=== PATIENT | female | born 1945 | race Caucasian/White ===

== ENCOUNTER 2025-06-04 08:17 | Outpatient (OUT) | payer MEDICARE, SELFPAY ==
--- NOTE | 2025-06-04 09:07 | P.CN_ITS ---
Consult Note: HPI Data of Consult Patient: known to practice within the last 3 years Requesting Physician: Sheron Sena NP Primary Care Provider: Greg Henderson DO Consult Narrative Reason for consult: low back pain Narrative: Sherrell Mitchell a pleasant 80 year old female with chronic low back pain secondary to lumbar spondylolisthesis, lumbar spondylosis, and lumbar stenosis presents for evaluation as advised by ELENI Henderson. Patient has undergone recent lumbar xray and MRI imaging which confirms lumbar spondylolisthesis, lumbar spondy losis, and lumbar stenosis L3-S1. patient denies recent fall/injury, notes pain did start 5 years ago after a fall. Pain today 8/10 increasing to 10/10 with standing and walking. pain improves significant with sitting and lying. denies numbness, tingling, weakness. could not tolerate PT due to severe pain, reports she attempted PT and HEP for at least 6 weeks without improvement cc:: CC: Sheron Sena NP Review of Systems ROS Musculoskeletal Reports: back pain Exam Constitutional Documenting provider has reviewed patient's vital signs: yes Common normals: no apparent distress, oriented x3, healthy appearing, alert and well nourished General appearance: cooperative HENWV Common normals: normocephalic, hearing grossly normal bilaterally and moist oral mucous membranes Head and scalp: normocephalic Eye Common normals: PERRL Pupil: PERRL Neck & C-Spine Common normals: full ROM General: normal visual inspection Chest Common normals: inspection of chest normal Respiratory Common normals: normal respiratory effort, no retractions and no use of accessory muscles Back & Pelvis Lumbar spine/lower back: ROM limited, pain with ROM and lumbar spinal tenderness Other: increased pain with standing and walking, significant improvement with sitting positive facet loading bilaterally Neuro Common normals: oriented x3 Sensorium/orientation: alert Psych Common normals: mental status grossly normal, thought process normal, cooperative, affect normal, speech normal and activity/motor behavior normal Speech: normal speech Thought process: normal thought process Results Additional Findings Additional findings: If on a controlled substance or opioids, I have checked an OARRS report on this patient and there are no aberrancies noted in the prescribing history.??If on a controlled substance or opioid a drug screen was completed and reviewed within the last year, and if there has not been a drug screen completed we ordered one today to monitor higher risk, state monitored pain medication use. As part of providing excellent, safe, comprehensive care, the following was completed at our patient's visit: 1. A medication reconciliation and review to ensure accurate knowledge of current/active medications, including asking our patients to inform us about any jium-ocq-kirieti medications or herbal remedies/nutritional supplements/alternative remedies. 2. A review to specifically ensure our patients have had annual screening for screening for depression, screening for tobacco use, and screening for unhealthy alcohol use. For concerning screenings had a discussion with the patient, provided patient education, and recommended follow-up with primary care provider when appropriate. If patient noted with a risk of falling, they received education on strength, gait, and balance training to prevent future risk of falling. Portions of this note may have been carried over from the previous visit and updated as appropriate. Please note this office utilizes paper charting in addition to the electronic medical record. A list of current medications, vitals, and PMH is available there as the clinical staff outside of myself do not have access to [employer] charting during the clinic day operations. As part of providing quality comprehensive care the current medications, vitals, and PMH were reviewed in the paper chart. Assessment and Plan Assessment and Plan (1) Lumbar spondylosis: Assessment and Plan: The patient has had over 3 months of moderate to severe low back pain with functional impairment and inadequate response to conservative care including NSAIDS (unless there are contraindication such as concurrent blood thinners), multiple oral or topical pain medications, and home exercise program/physical therapy.?Patient has completed >6 weeks of guided home exercise program and/or formal physical therapy program without relief of their symptoms.? ? (2) Lumbar stenosis without neurogenic claudication: Plan bilateral L4-5 mbb x2 under fluoroscopy in consideration of RFA for axial facet mediated low back pain vs NS intervention as advised by Dr Henderson via referral, I did call his office and speak with his nursing to confirm this plan of care today. informational handout provided to the pt continue HEP as tolerated not interested in medication management, AIR CONDITIONING SPECIALIST reviewed and signed. defer UDS f/u after each injection
== END 2025-06-04 08:18 | disposition home or self-care (01) ==
LOC: PM 08:18
PROVIDERS: PCP Neurological Surgery; Visit Provider Nurse Practitioner
DX: M47.816 Spondylosis without myelopathy or radiculopathy, lumbar region (principal); M48.062 Spinal stenosis, lumbar region with neurogenic claudication
CPT/HCPCS: G0463

== ENCOUNTER 2025-07-17 17:57 | Emergency (ER) | payer MEDICARE, SELFPAY ==
[2025-07-17 18:03] VITALS: BP 146/72; PULSE 67; TEMP 36.7; O2SAT 98; BMI 35.2
--- NOTE | 2025-07-17 18:40 | PC.NURSE ---
PA at bedside at this time digitally disimpacting pt. fleets enema then given. pt tolerating well
--- NOTE | 2025-07-17 18:58 | ED.GENADUL1 ---
HPI HPI - General Adult General Chief complaint: Abdominal Pain Stated complaint: CONSTIPATED Time Seen by Provider: 07/17/25 17:59 Source: patient Mode of arrival: walk-in Limitations: no limitations History of Present Illness HPI narrative: Patient has history of constipation x 3 days. Patient she also has inability to produce stool states it feels like it is at the rectum but has not come out she has had some bleeding secondary to pushing. She denies any nausea, vomiting, abdominal pain,. she has also tried suppositories as well as MiraLAX without relief Symptoms mild severity nothing improves symptoms nothing worsens her symptoms.. Onset (ago): day(s) (3) Related Data Home Medications ?Medication ?Instructions ?Recorded ?Confirmed calcium 600 mg (as 1 tab PO DAILY 06/04/25 06/04/25 carbonate)-vitamin D3 5 mcg (200 unit) tablet (Calcium 600 + D(3)) esomeprazole magnesium 40 mg 40 mg PO DAILY 06/04/25 07/17/25 capsule,delayed release (Nexium) furosemide 20 mg tablet 20 mg PO DAILY 06/04/25 07/17/25 levothyroxine 100 mcg capsule 100 mcg PO DAILY 06/04/25 06/04/25 methimazole 10 mg tablet 10 mg PO BID 06/04/25 07/17/25 polyethylene glycol 3350 17 17 g PO DAILY 06/04/25 06/04/25 gram/dose oral powder (Miralax) solifenacin 5 mg tablet 5 mg PO DAILY 06/04/25 07/17/25 tamoxifen 20 mg tablet 20 mg PO DAILY 06/04/25 07/17/25 vitamin B complex (Vitamins B 1 cap PO DAILY 06/04/25 06/04/25 Complex capsule) levothyroxine 100 mcg tablet mcg 07/17/25 potassium chloride 10 mEq meq PO 07/17/25 tablet,extended release Allergies Allergy/AdvReac Type Severity Reaction Status Date / Time No Known Drug Allergies Allergy Verified 07/17/25 18:03 Opioid HPI Opioid Management Most Recent Opioid Data: Last Pain Scale 8 Today, 18:03 Review of Systems ROS Status of ROS 10 or more systems reviewed and unremarkable except as noted in history and below Constitutional Denies: fever or chills Eyes Denies: change in vision or blurry vision Ears, nose, mouth, and throat Denies: throat pain Cardiovascular Denies: chest pain or palpitations Respiratory Denies: shortness of breath or cough Gastrointestinal Reports: constipation and blood in stool; Denies: abdominal pain, nausea, vomiting or change in stool character Genitourinary Denies: painful urination or blood in urine Musculoskeletal Denies: back pain or muscle weakness Integumentary/Breast Denies: rash Neurological Denies: headache Psychiatric Denies: anxiety [facility] Medical History (Updated 07/17/25 @ 19:06 by ALEX STEEN II) Osteoarthritis ?M19.90 - Unspecified osteoarthritis, unspecified site (ICD-10) Breast cancer ?C50.919 - Malignant neoplasm of unspecified site of unspecified female breast (ICD-10) Graves disease ?E05.00 - Thyrotoxicosis with diffuse goiter without thyrotoxic crisis or storm (ICD-10) Heart murmur ?R01.1 - Cardiac murmur, unspecified (ICD-10) Surgical History (Updated 06/04/25 @ 09:52 by Rhona Rangel RN) History of breast surgery ?Z98.890 - Other specified postprocedural states (ICD-10) H/O section ?Z98.891 - History of uterine scar from previous surgery (ICD-10) Exam Narrative Exam Narrative: Patient presents with constipation x 3 days Constitutional Vital Signs, click to edit/add: Last Vital Signs Temp 98.1 F 07/17/25 18:03 Pulse 65 07/17/25 19:14 Resp 16 07/17/25 19:14 BP 118/52 07/17/25 19:14 Pulse Ox 98 07/17/25 18:03 O2 Del Method Room Air 07/17/25 18:03 Documenting provider has reviewed patient's vital signs: yes Common normals: no apparent distress and oriented x3 HENMT Common normals: normocephalic, hearing grossly normal bilaterally and external ears normal Eye Common normals: PERRL and EOMs intact bilaterally Neck & C-Spine Common normals: full ROM and supple Respiratory Common normals: normal respiratory effort and clear to auscultation bilaterally Effort & inspection: able to speak in complete sentences Cardio Common normals: regular rate, regular rhythm, S1 normal heart sound and S2 normal heart sound GI Common normals: Normal to inspection, nondistended, normoactive bowel sounds present, soft to palpation and non-tender Rectal Exam - Female: normal sphincter tone and fecal impaction Other: Fecal impaction negative bleeding negative dark stool negative blood mixed with stool. Small nonthrombosed hemorrhoid noted nursing present for exam and treatment Back & Pelvis Common normals: thoraco-lumbar ROM normal Extremity Common normals: normal to inspection and full ROM Neuro Common normals: oriented x3 Psych Common normals: mental status grossly normal, thought process normal and cooperative Course Vital Signs Vital signs: Vital Signs Temperature 98.1 F 07/17/25 18:03 Pulse Rate 67 07/17/25 18:03 Respiratory Rate 16 07/17/25 18:03 Blood Pressure 146/72 H 07/17/25 18:03 Pulse Oximetry 98 07/17/25 18:03 Oxygen Delivery Method Room Air 07/17/25 18:03 Temperature 98.1 F 07/17/25 18:03 Pulse Rate 65 07/17/25 19:14 Respiratory Rate 16 07/17/25 19:14 Blood Pressure 118/52 07/17/25 19:14 Pulse Oximetry 98 07/17/25 18:03 Oxygen Delivery Method Room Air 07/17/25 18:03 Medical Decision Making [facility] Narrative Medical decision making narrative: Patient presents with 3-day history of inability produce stool she feels as if it stuck in her rectum. She has tried MiraLAX along with suppositories with no relief. She had small amount of bleeding with straining. Denies any abdominal pain, nausea, vomiting. We discussed fecal disimpaction including risks and benefits including increased bleeding worsening of symptoms, pain damage to rectum. We discussed fleets enema. Patient tolerated procedure with nursing present negative bleeding negative tar-like stool. Fleets enema added. Patient had large amount of stool output feels better wants discharged home she will continue her MiraLAX will add magnesium citrate as directed on packaging and clear liquid diet. Discussed plan of care patient agreeable plan of care. Differential Diagnosis Differential Diagnosis: Constipation ,fecal impaction Discharge Plan Discharge Chief Complaint: Abdominal Pain Clinical Impression: Fecal impaction Constipation Qualifiers: Constipation type: unspecified constipation type Qualified Code(s): K59.00 - Constipation, unspecified Patient Disposition: Home, Self-Care Time of Disposition Decision: 19:05 Mode of Transportation: Private Vehicle Prescriptions / Home Meds: No Action levothyroxine 100 mcg capsule 100 mcg PO DAILY methimazole 10 mg tablet 10 mg PO BID esomeprazole magnesium [Nexium] 40 mg capsule,delayed release(DR/EC) 40 mg PO DAILY tamoxifen 20 mg tablet 20 mg PO DAILY vitamin B complex [Vitamins B Complex] Capsule 1 cap PO DAILY calcium carbonate-vitamin D3 [Calcium 600 + D(3)] 600 mg-5 mcg (200 unit) tablet 1 tab PO DAILY polyethylene glycol 3350 [Miralax] 17 gram/dose powder 17 g PO DAILY solifenacin 5 mg tablet 5 mg PO DAILY furosemide 20 mg tablet 20 mg PO DAILY potassium chloride 10 mEq tablet extended release PO levothyroxine 100 mcg tablet Print Language: Chadian Instructions: Constipation (DC), Fecal Impaction (ED) Additional Instructions: Clear liquid diet for 24 hours includes water, Jell-O, popsicles, clear broth, Gatorade. Use magnesium citrate as directed on side of bottle for constipation. Return to ER if any symptoms worsen or new symptoms develop. Referrals: Alejandro Stern DO [Primary Care Provider] - 1 week Discharge Date/Time: 07/17/25 19:17
[2025-07-17 19:14] VITALS: BP 118/52; PULSE 65
== END 2025-07-17 19:17 | disposition home or self-care (01) ==
PROVIDERS: Emergency Provider Emergency Medicine; PCP Family Medicine
DX: K56.41 Fecal impaction (principal)
CPT/HCPCS: 99283

== ENCOUNTER 2025-07-21 10:15 | Day surgery (SDC) | payer MEDICARE, SELFPAY ==
[2025-07-21 10:55] VITALS: BP 177/85; PULSE 55; TEMP 36.2; O2SAT 94
[2025-07-21 11:29] VITALS: BP 197/85; PULSE 87; O2SAT 95
[2025-07-21 11:30] VITALS: BP 202/93; PULSE 64; O2SAT 96
[2025-07-21] MEDS: BUPIVACAINE HCL 0.25% PF 25 MG/10 ML VIAL 8 ML INJ (11:31)
[2025-07-21] MEDS: LIDOCAINE HCL 2% 400 MG/20 ML MDV INJ (11:31)
--- NOTE | 2025-07-21 11:33 | W.PM.PROCNOT ---
Date of procedure: 07/21/25 Pre-op diagnosis: Pain due to lumbar spondylosis without myelopathy Post-op diagnosis: same as pre-op Procedure: Procedure: Bilateral L4-5 medial branch block Medications: Bupivacaine 0.25% 6cc The patient was seen and examined in the preoperative holding area.? An informed consent was obtained and placed on the chart.? The patient was brought to the medical procedure unit and placed in the prone position.? A timeout was completed verifying correct patient, procedure site, positioning, plan, and special equipment.? Using aseptic technique, the needle was placed at left L4. Under direct fluoroscopic visualization a Quincke-tipped spinal needle was advanced to the junction of the superior articulating process with the transverse process at the designated medial branch segment.? Preceded by negative aspiration, the above-mentioned injectate was placed in 1 mL aliquots.? The procedure was repeated at left L5.? The needle was removed and insertion site was covered. The same procedure, at the same levels, was completed on the right side. The patient was taken to the postprocedural recovery area and monitored for an appropriate length of time before found suitable for discharge in the company of a responsible adult. Anesthesia: Local Surgeon: Margarita Sol Pathology: none sent Condition: stable Disposition: no change
== END 2025-07-21 11:38 | disposition home or self-care (01) ==
PROVIDERS: PCP Family Medicine; Visit Provider Anesthesiology
DX: M47.816 Spondylosis without myelopathy or radiculopathy, lumbar region (principal); M54.50 Low back pain, unspecified
CPT/HCPCS: 64493; J0665

== ENCOUNTER 2025-07-24 08:23 | Outpatient (OUT) | payer MEDICARE, SELFPAY ==
--- NOTE | 2025-07-24 08:41 | PM.CN ---
Consult Note: HPI Data of Consult Patient: known to practice within the last 3 years Requesting Physician: Sheron Sena NP Primary Care Provider: Alejandro Stern DO Consult Narrative Reason for consult: low back pain Narrative: Sherrell Mitchell a pleasant 80 year old female with chronic low back pain secondary to lumbar spondylolisthesis, lumbar spondylosis, and lumbar stenosis presents for evaluation as advised by ELENI Henderson. Patient has undergone recent lumbar xray and MRI imaging which confirms lumbar spondylolisthesis, lumbar spondylosis, and lumbar stenosis L3-S1. patient denies recent fall/injury, notes pain did start 5 years ago after a fall. Pain today 8/10 increasing to 10/10 with standing and walking. pain improves significant with sitting and lying. reports weakness of RLE with standing and walking, as well as pain in right thigh. could not tolerate PT due to severe pain, reports she attempted PT and HEP for at least 6 weeks without improvement. Pt recently underwent bilateral L4-[address] MBB [address] Henderson with 50% improvement while anesthetized cc:: CC: Sheron Sena NP Review of Systems ROS Musculoskeletal Reports: back pain PFSH PFSH Medical History (Updated 07/17/25 @ 19:06 by ALEX STEEN II) Osteoarthritis ?M19.90 - Unspecified osteoarthritis, unspecified site (ICD-10) Breast cancer ?C50.919 - Malignant neoplasm of unspecified site of unspecified female breast (ICD-10) Graves disease ?E05.00 - Thyrotoxicosis with diffuse goiter without thyrotoxic crisis or storm (ICD-10) Heart murmur ?R01.1 - Cardiac murmur, unspecified (ICD-10) Surgical History (Updated 06/04/25 @ 09:52 by Rhona Rangel RN) History of breast surgery ?Z98.890 - Other specified postprocedural states (ICD-10) H/O section ?Z98.891 - History of uterine scar from previous surgery (ICD-10) Meds Home Medications and Allergies Home Medications ?Medication ?Instructions ?Recorded ?Confirmed ?Type calcium 600 mg (as 1 tab PO DAILY 06/04/25 07/21/25 History carbonate)-vitamin D3 5 mcg (200 unit) tablet (Calcium 600 + D(3)) esomeprazole magnesium 40 mg 40 mg PO DAILY 06/04/25 07/21/25 History capsule,delayed release (Nexium) furosemide 20 mg tablet 20 mg PO DAILY 06/04/25 07/21/25 History levothyroxine 100 mcg capsule 100 mcg PO DAILY 06/04/25 07/21/25 History methimazole 10 mg tablet 10 mg PO BID 06/04/25 07/21/25 History polyethylene glycol 3350 17 17 g PO DAILY 06/04/25 07/21/25 History gram/dose oral powder (Miralax) solifenacin 5 mg tablet 5 mg PO DAILY 06/04/25 07/21/25 History tamoxifen 20 mg tablet 20 mg PO DAILY 06/04/25 07/21/25 History vitamin B complex (Vitamins B 1 cap PO DAILY 06/04/25 07/21/25 History Complex capsule) potassium chloride 10 mEq meq PO 07/17/25 History tablet,extended release Allergies Allergy/AdvReac Type Severity Reaction Status Date / Time No Known Drug Allergies Allergy Verified 07/21/25 11:05 Exam Constitutional Documenting provider has reviewed patient's vital signs: yes Common normals: no apparent distress, oriented x3, healthy appearing, alert and well nourished General appearance: cooperative HENMT Common normals: normocephalic, hearing grossly normal bilaterally and moist oral mucous membranes Head and scalp: normocephalic Eye Common normals: PERRL Pupil: PERRL Neck & C-Spine Common normals: full ROM General: normal visual inspection Chest Common normals: inspection of chest normal Respiratory Common normals: normal respiratory effort, no retractions and no use of accessory muscles Back & Pelvis Lumbar spine/lower back: ROM limited, pain with ROM, lumbar spinal tenderness and straight leg raise positive right Other: increased pain with standing and walking, significant improvement with sitting positive facet loading bilaterally pain following right L4,5,S1 with standing, walking strength 5/5 in BLE Neuro Common normals: oriented x3 Sensorium/orientation: alert Psych Common normals: mental status grossly normal, thought process normal, cooperative, affect normal, speech normal and activity/motor behavior normal Speech: normal speech Thought process: normal thought process Results Additional Findings Additional findings: If on a controlled substance or opioids, I have checked an OARRS report on this patient and there are no aberrancies noted in the prescribing history.??If on a controlled substance or opioid a drug screen was completed and reviewed within the last year, and if there has not been a drug screen completed we ordered one today to monitor higher risk, state monitored pain medication use. As part of providing excellent, safe, comprehensive care, the following was completed at our patient's visit: 1. A medication reconciliation and review to ensure accurate knowledge of current/active medications, including asking our patients to inform us about any [id number]-ntkynkw medications or herbal remedies/nutritional supplements/alternative remedies. 2. A review to specifically ensure our patients have had annual screening for screening for depression, screening for tobacco use, and screening for unhealthy alcohol use. For concerning screenings had a discussion with the patient, provided patient education, and recommended follow-up with primary care provider when appropriate. If patient noted with a risk of falling, they received education on strength, gait, and balance training to prevent future risk of falling. Portions of this note may have been carried over from the previous visit and updated as appropriate. Please note this office utilizes paper charting in addition to the electronic medical record. A list of current medications, vitals, and PMH is available there as the clinical staff outside of myself do not have access to [employer] charting during the clinic day operations. As part of providing quality comprehensive care the current medications, vitals, and PMH were reviewed in the paper chart. Assessment and Plan Assessment and Plan (1) Lumbar spondylosis: Assessment and Plan: The patient has had over 3 months of moderate to severe low back pain with functional impairment and inadequate response to conservative care including NSAIDS (unless there are contraindication such as concurrent blood thinners), multiple oral or topical pain medications, and home exercise program/physical therapy.?Patient has completed >6 weeks of guided home exercise program and/or formal physical therapy program without relief of their symptoms.? ? 07/21/25 bilateral L4-5 facet medial branch block 50% improvement preop pain / post op pain 01/23 (2) Lumbar stenosis without neurogenic claudication: Plan defer bilateral L4-5 mbb #2 in consideration of RFA. at this time proceed with right L4,5,S1 TFESI under fluoroscopy for lumbar stenosis with NC continue HEP as tolerated f/u after each injection
== END 2025-07-24 08:24 | disposition home or self-care (01) ==
LOC: PM 08:23
PROVIDERS: PCP Family Medicine; Visit Provider Nurse Practitioner
DX: M47.816 Spondylosis without myelopathy or radiculopathy, lumbar region (principal); M48.062 Spinal stenosis, lumbar region with neurogenic claudication
CPT/HCPCS: G0463

== ENCOUNTER 2025-08-04 12:11 | Day surgery (SDC) | payer MEDICARE, SELFPAY ==
--- OUTSIDE RECORDS SUMMARY | 2025-08-04 12:14 | XMS_ITS | Encounter Summary ---
Author Organization [facility] Address [address] [place] [address] Phone Care Team Providers Care Magneto Electrician Name Role Phone Unavailable Primary Care Provider Unavailabl e Encounter Details Date Type Department Care Team (Late st Contact Info) Description 09/24/2024 Scanned Document [facility] [address] [place] [id number] Scanning, Generic Provider Social History Tobacco Use Types Packs/Day Years Used Date Smoking Tobacco: Never Assessed Comments Unknown Sex and Gender Information Value Date Recorded Sex Assigned at Not on file Legal Sex Female 8:54 AM EST Gender Identity Not on file Sexual Orientation Not on file documented as of this encounter Plan of Treatment Not on file documented as of this encounter Procedures Procedure Name Priority Date/Time Associated Diagnosis Comments NUCLEAR STRESS TEST - ONBASE SCAN 09/24/2024 STRESS TEST - ONBASE SCAN 09/24/2024 documented in this encounter Results * Nuclear Stress Test - Onbase Scan (09/24/2024) Narrative 09/24/2024 Ordered by an unspecified provider. us Generic Provider Scanning CV STRESS PROCEDURES F inal Result * Stress Test - Onbase Scan (09/24/2024) Narrative 09/24/2024 Ordered by an unspecified provider. us Generic Provider Scanning CV STRESS PROCEDURES F inal Result documented in this encounter Visit Diagnoses Not on filedocumented in this encounter
--- OUTSIDE RECORDS SUMMARY | 2025-08-04 12:14 | XMS_ITS | Clinical Summary ---
Author Organization [facility] Address [address] [place] [address] Care Team Providers Care Vocational Placement Specialist Name Role Phone Alejandro Stern Primary Care Provider [phone] Allergies No known active allergies Medications levothyroxine (SYNTHROID) 75 mcg tablet 2 Active esomeprazole (NEXIUM) 40 mg capsule 1 capsule. 2 Active methIMAzole (TAPAZOLE) 10 mg tablet 2 Active calcium carbonate 600 mg-cholecalcife rol 400 units 600 mg-10 mcg (400 unit) tab Calcium Carbonate-Vitami n D3 (Calcium 600 + D(3)) 600 mg-10 mcg (400 unit) Tablet Active 2 TAB PO Daily at bedtime June 28, 2022 12:00am 2 Active betamethasone valerate 0.1 % cream 1 application q 24 HR. 1 Active polyethylene glycol 3350 (MIRALAX, GLYCOLAX) 17 gram/dose powder Polyethylene Glycol 3350 (Miralax) 17 gram/dose Powder Active 4 GM PO Daily at bedtime June 28, 2022 12:00am 2 Active VITAMIN B COMPLEX ORAL Vitamin B Complex Active 1 CAP PO Daily June 28, 2022 12:00am 2 Active Active Problems No known active problems Family History Medical History Relation Comments Skin Cancer Father Uterine Cancer Mother bladder cancer Mother Relation Status Comments Father Mother Social History Tobacco Use Types Packs/Day Years Used Date Smoking Tobacco: Never Smokeless Tobacco: Never Tobacco Cessation:Counseling Given: Not Answered Alcohol Use Standard Drinks/Week Comments Not Currently 0 (1 standard drink = 0.6 oz pur e alcohol) Area Deprivation Index Answer Date Mello rded National Score (1-100), lower number is lower ri sk 88 10/29/2022 State Score (1-10), lower number is lower risk N ot on file 10/29/2022 Data from: https://www.neighborhoodatlas.medicine.[facility].edu/. Last address used for calculation [address] 10/29/2022 Comments No Sex and Gender Information Value Date Recorded Sex Assigned at Not on file Legal Sex Female 2:45 PM EDT Gender Identity Not on file Sexual Orientation Not on file Last Filed Vital Signs Vital Sign Reading Time Taken Comments Blood Pressure 129/76 07/26/2022 9:08 AM EDT Pulse 65 07/26/2022 9:08 AM EDT Temperature 36.1 C (96.9 F) 07/26/2022 9:08 AM EDT Respiratory Rate 16 07/26/2022 9:08 AM EDT Oxygen Saturation 97% 07/26/2022 9:08 AM EDT Inhaled Oxygen Concentration - - Weight 102.1 kg (225 lb) 07/26/2022 9:08 AM EDT Height 165.1 cm (5' 5 ) 07/26/2022 9:08 AM EDT Body Mass Index 37.44 07/26/2022 9:08 AM EDT Plan of Treatment Health Maintenance Due Date Last Done Comments Anxiety Screening 01/15/1964 Depression Screening 01/15/1964 DTaP,Tdap,Td Vaccine (1 - Tdap) 1965 Diabetes Screening 1991 Pneumococcal Vaccine: 50+ (1 of 1 - PCV) 01/15/1996 Shingrix Vaccine (1 of 2) 01/15/1996 Bone Density Screening 2011 RSV Vaccine (1 - 1-dose 75+ series) 2021 Advance Directive Discussion 10/16/2024 Medicare Advantage Annual We llness Visit 10/16/2024 Covid-19 Vaccine ( season) 2025 08/15/2021, 12/21/2020, 11/23/2020 Influenza Vaccine (#1) 2025 07/23/2021, 2019 Insurance [facility] MEDICARE PPO Care Teams Vocational Placement Specialist Relationship Specialty Start Date End Date Alejandro Stern DO [facility] [place] [address] PCP - General Family Medicine 07/26/22
--- OUTSIDE RECORDS SUMMARY | 2025-08-04 12:14 | XMS_ITS | Encounter Summary ---
Author Organization [facility] Address [address] [place] [address] Care Team Providers Care Charge Aide Name Role Phone Alejandro Stern DO Primary Care Provider [phone] Alejandro Stern DO Primary Care Provider [phone] Encounter Details Date Type Department Care Team (Late Contact Info) Description 10/13/2023 Abstract [facility] [address] [phone] Ok Gaytan, DO [address] [address] Social History Tobacco Use Types Packs/Day Years Used Date Smoking Tobacco: Never Smokeless Tobacco: Never Alcohol Use Standard Drinks/Week Comments Not Currently 0 (1 standard drink = 0.6 oz pur e alcohol) Comments Unknown Sex and Gender Information Value Date Recorded Sex Assigned at Not on file Legal Sex Female 6:52 PM EDT Gender Identity Not on file Sexual Orientation Not on file documented as of this encounter Plan of Treatment Upcoming Encounters Date Type Department Care Team (Late st Contact Info) Description 01/01/2026 10:30 AM EDT Office Visit [facility] [address] [address] Ok Gaytan, DO 703 [facility] [address] [place] [address] documented as of this encounter Visit Diagnoses Not on filedocumented in this encounter Care Teams Charge Aide Relationship Specialty Start Date End Date Alejandro Stern DO PCP - General 04/19/23 07/13/25 Alejandro Stern DO [address] [place] [phone] PCP - General Family Medicine 07/14/25 documented as of this encounter
--- OUTSIDE RECORDS SUMMARY | 2025-08-04 12:14 | XMS_ITS | Encounter Summary ---
Author Organization [facility] Address [address] [place] [address] Care Team Providers Care Thermite Bomb Loader Name Role Phone Alejandro Stern DO Primary Care Provider [phone] Alejandro Stern DO Primary Care Provider [phone] Encounter Details Date Type Department Care Team (Late st Contact Info) Description 06/05/2023 External Result Encounter [facility] Unsolicited Ok Gaytan, DO [address] [address] Social History Tobacco Use Types [...] EDT Office Visit [facility] [address] [phone] Ok Gaytan DO [address] [address] documented as of this encounter Procedures Procedure Name Priority Date/Time Associated Diagnosis Comments BI MAMMOGRAM DIAGNOSTIC BILATERAL 06/05/2023 3:08 PM EDT documented in this encounter Results * Bilateral diagnostic mammogram (06/05/2023 3:08 PM EDT) Anatomical Region Laterality Modality Breast Bilateral Mammography 06/05/2023 3:08 PM EDT Impressions 06/09/2023 1:51 PM EDT NO MAMMOGRAPHIC EVIDENCE OF MALIGNANCY. ROUTINE FOLLOW-UP IS RECOMMENDED IN ONE YEAR. RESULT CODE: 2 Benign Findings(s) DENSITY CODE: 2 (approximately 25-50% glandular) FOLLOW UP: 1YR The false-negative rate of mammography is approximately 10-percent. Management of a palpable abnormality must be based on clinical grounds. Patient was entered into a reminder system with a target due date for the next mammogram. Impression dictated by: Palomo Pompa M.D.06/05/2023 3:11 PM Dictation Location: [facility] Transcribed By: [facility] 06/05/23 1511 Dictated By: Palomo Pompa II, MD 06/05/23 1508 Signed By: <Electronically signed by Palomo Pompa II, MD in OV> 06/05/23 1511 Narrative 06/09/2023 1:51 PM EDT [facility] [place] [address] [place] [address] Mammography Report Signed Patient: Sherrell Mitchell MR#: [id number] 92 : 1945 Acct:[id number] Age/Sex: 78 / F ADM Date: 06/05/23 Loc: [place] Room: Type: [facility] Attending Dr: Ok Gaytan DO Copies to: DO Ok Kibry DO Ordering Provider: Ok Gaytan DO Date of Service: 06/05/23 MM/MM diagnostic mammo BI w/CAD: Z85.3 CLINICAL DATA: Screening for malignancy. BILATERAL SCREENING MAMMOGRAMS - FULL FIELD DIGITAL WITH TOMOSYNTHESIS AND CAD Conventional and there are similar focal asymmetries. Tomosynthesis craniocaudal and mediolateral oblique views of both breasts were obtained using low-dose digital technique. Comparison is made to prior studies from 06/09/2022, 05/19/2022, and 12/16/2019. This examination was reviewed with the aid of CAD. There are scattered fibroglandular densities. Surgical clips are present in the right breast. Benign-appearing calcifications are redemonstrated bilaterally. There are no dominant masses, typically malignant calcifications or architectural distortion. There has been no significant interval change. MM/MM diagnostic mammo BI w/CAD Procedure Note Radiology, Radiologist, MD - 06/09/2023 [facility] [place] [address] [place] [address] Mammography Report Signed Patient: Sherrell Mitchell LMR#: [id number] 92 : 6Acct:[id number] Age/Sex: 78 / FADM Date: 06/05/23 Loc: [place] Room:Type: [facility] Attending Dr: Ok Gaytan DO Copies to: DO Ok Kirby DO Ordering Provider: Ok Gaytan DO Date of Service: 06/05/23 MM/MM diagnostic mammo BI w/CAD: Z85.3 CLINICAL DATA: Screening for malignancy. BILATERAL SCREENING MAMMOGRAMS - FULL FIELD DIGITAL WITH TOMOSYNTHESIS ANDCAD Conventional and there are similar focal asymmetries. Tomosynthesiscraniocaudal and mediolateral oblique views of both breasts were obtained using low-dose digitaltechnique. Comparison is made to prior studies from 06/09/2022, 05/19/2022, and 12/16/2019. This examinationwas reviewed with the aid of CAD. There are scattered fibroglandular densities. Surgical clips are presentin the right breast. Benign-appearing calcifications are redemonstrated bilaterally. There areno dominant masses, typically malignant calcifications or architectural distortion. There hasbeen no significant interval change. MM/MM diagnostic mammo BI w/CAD IMPRESSION: NO MAMMOGRAPHIC EVIDENCE OF MALIGNANCY. ROUTINE FOLLOW-UP IS RECOMMENDED IN ONE YEAR. RESULT CODE: 2 Benign Findings(s) DENSITY CODE: 2 (approximately 25-50% glandular) FOLLOW UP: 1YR The false-negative rate of mammography is approximately 10-percent. Management of a palpable abnormality must be based on clinical grounds. Patient was entered into a reminder system with a target due date for thenext mammogram. Impression dictated by: Palomo Pompa M.D.06/05/2023 3:11 PM Dictation Location: [facility] Transcribed By: [facility] 06/05/23 1511 Dictated By: Palomo Pompa II, MD 06/05/23 1508 Signed By: <Electronically signed by Palomo Pompa II, MD inOV> 06/05/23 1511 Ok Gaytan DO IMG BI PROCEDURES Final R esult documented in this encounter Visit Diagnoses Not on filedocumented in this encounter Care Teams Thermite Bomb Loader Relationship Specialty Start Date End Date Alejandro Stern DO PCP - General 04/19/23 07/13/25 Alejandro Stern DO [address] [place] [phone] PCP - General Family Medicine 07/14/25 documented as of this encounter
--- OUTSIDE RECORDS SUMMARY | 2025-08-04 12:14 | XMS_ITS | Encounter Summary ---
Author Organization [facility] Address [address] [place] [address] Care Team Providers Care Gas Inspector Name Role Phone Alejandro Stern DO Primary Care Provider [phone] Alejandro Stern DO Primary Care Provider [phone] Encounter Details Date Type Department Care Team (Late st Contact Info) Description 04/14/2023 Abstract [facility] [address] [phone] Ok Gaytan, DO [address] [address] Social History Tobacco Use Types [...] EDT Office Visit [facility] [address] [phone] Ok Gaytan, DO [address] [address] documented as of this encounter Visit Diagnoses Not on filedocumented in this encounter Care Teams Gas Inspector Relationship Specialty Start Date End Date Alejandro Stern DO PCP - General 04/19/23 07/13/25 Alejandro Stern DO [facility] [place] [phone] PCP - General Family Medicine 07/14/25 documented as of this encounter
--- OUTSIDE RECORDS SUMMARY | 2025-08-04 12:15 | XMS_ITS | Clinical Summary ---
Author Organization [facility] Address [address] [place] [address] Phone Care Team Providers Care Crewman Armoured Personnel Carrier M113 Name Role Phone Unavailable Primary Care Provider Unavailabl e Social History Tobacco Use Types Packs/Day Years Used Date Smoking Tobacco: Never Assessed Comments Unknown Sex and Gender Information Value Date Recorded Sex Assigned at Not on file Legal Sex Female 8:54 AM EST Gender Identity Not on file Sexual Orientation Not on file Plan of Treatment Health Maintenance Due Date Last Done Comments Lipid Panel 1945 Medicare Annual Wellness Vis it (AWV) 1945 Hepatitis C Screening 01/15/1964 DTaP/Tdap/Td Vaccines (1 - Tdap) 01/15/1968 Pneumococcal Vaccine (1 of 1 - PCV) 01/15/1996 Zoster Vaccines (1 of 2) 01/15/1996 Bone Density Scan 2011 RSV High Risk: (Elderly (60+ ) or Population) (1 - 1-dose 75+ series) 2021 Influenza Vaccine (#1) 2025 COVID-19 Vaccine ( - 2024-2 6 season) 2025 HIB Vaccines Aged Out No longer eligi ble based on patient's age to complete this topic HPV Vaccines Aged Out No longer eligi ble based on patient's age to complete this topic Hepatitis A Vaccines Aged Out No long er eligible based on patient's age to complete this topic Hepatitis B Vaccines Aged Out No long er eligible based on patient's age to complete this topic IPV Vaccines Aged Out No longer eligi ble based on patient's age to complete this topic Meningococcal Vaccine Aged Out No mohit oneal eligible based on patient's age to complete this topic Rotavirus Vaccines Aged Out No longer eligible based on patient's age to complete this topic Insurance [employer] MEDICARE [employer] MEDICARE [employer]
--- OUTSIDE RECORDS SUMMARY | 2025-08-04 12:15 | XMS_ITS | Encounter Summary ---
Author Organization [facility] Address [address] [place] [address] Phone Care Team Providers Care Integrated Marketing Intern Name Role Phone Unavailable Primary Care Provider Unavailabl e Encounter Details Date Type Department Care Team (Late st Contact Info) Description 09/27/2024 Scanned Document [facility] [address] [place] [address] Scanning, Generic Provider Social History Tobacco Use [...] Procedure Name Priority Date/Time Associated Diagnosis Comments ECHOCARDIOGRAM 09/27/2024 documented in this encounter Results * Echocardiogram (09/27/2024) Narrative 09/27/2024 Ordered by an unspecified provider. us Generic Provider Scanning CV ECHO PROCEDURES Fin al Result documented in this encounter Visit Diagnoses Not on filedocumented in this encounter
--- OUTSIDE RECORDS SUMMARY | 2025-08-04 12:15 | XMS_ITS | Clinical Summary ---
Author Organization [facility] Address [address] [place] [address] Care Team Providers Care Relief Mate Name Role Phone Warnervalente Alejandro Jaylan LUX Primary Care Provider [phone] Allergies No known active allergies Medications methIMAzole (Tapazole) 10 MG tablet 20 mg 1 (one) time each day at the same time Active oxybutynin (Ditropan) 5 MG tablet 3 Active tamoxifen (Nolvadex) 20 MG chemo tablet 3 Active esomeprazole (NexIUM) [address] capsule 1 capsule 1 (one) time each day at the same time Active Calcium Carb-Cholecalc iferol 600-10 MG-MCG tablet 2 Active levothyroxine (Synthroid, Levoxyl) 50 MCG tablet 4 Active levothyroxine (Synthroid, Levoxyl) 100 MCG tablet 4 Active furosemide (Lasix) 20 MG tablet 5 Active solifenacin (VESIcare) 5 MG tablet Take 5 mg by mouth Daily Active trospium (Sanctura) 20 MG tablet Take 20 mg by mouth in the morning and 20 mg before bedtime. 5 07/14/20 25 Discontinued Active Problems Problem Noted Date Diagnosed Date Calculus of gallbladder with out cholecystitis without obstruction 05/29/2023 Ductal carcinoma in situ (DCIS) of right breast 05/29/2023 Encounters Date Type Department Care Team Description 07/14/2025 3:45 PM EDT Office Visit [facility] [address] [phone] Ok Gaytan DO Ductal carcinoma in situ (DCIS) of right breast (Primary Dx) 07/14/2025 Travel 06/25/2025 Travel from Last 3 Months Family History Medical History Relation Name Comments Uterine cancer Mother Breast cancer Neg Hx Colon cancer Neg Hx Ovarian cancer Neg Hx Pancreatic cancer Neg Hx Relation Name Status Comments Father Mother Social History Tobacco [...] Sign Reading Time Taken Comments Blood Pressure 135/85 01/10/2025 10:23 AM EDT Pulse - - Temperature - - Respiratory Rate - - Oxygen Saturation - - Inhaled Oxygen Concentration - - Weight 105 kg (231 lb) 01/10/2025 10:23 AM EDT Height 170.2 cm (5' 7 ) 01/10/2025 10:23 AM EDT Body Mass Index 36.18 01/10/2025 10:23 AM EDT Plan of Treatment Upcoming Encounters Date Type Department Care Team (Late st Contact Info) Description 01/01/2026 10:30 AM EDT Office Visit [facility] [address] [place] [phone] Ok Gaytan DO 703 [facility] [address] [place] [address] Health Maintenance Due Date Last Done Comments Pneumococcal Vaccine: 65+ Ye ars (1 of 1 - PCV) 01/15/1996 Influenza Vaccine (#1) 2025 4, 07/21/2023, 07/27/2022, Additional history exists Procedures Procedure Name Priority Date/Time Associated Diagnosis Comments BI MAMMOGRAM DIAGNOSTIC TOMOSYNTHESIS BILATERAL Routine 06/09/2025 10:09 AM EDT Ductal carcinoma in situ (DCIS) of right breast from Last 3 Months Results * Bilateral diagnostic mammogram with tomosynthesis (06/09/2025 10:09 AM EDT) Anatomical Region Laterality Modality Breast Bilateral Mammography 06/09/2025 10:0 9 AM EDT Impressions 06/09/2025 10:13 AM EDT NO MAMMOGRAPHIC EVIDENCE OF MALIGNANCY. ROUTINE FOLLOW-UP IS RECOMMENDED IN ONE YEAR. RESULT CODE: 1 Negative DENSITY CODE: 2 (approximately 25-50% glandular) There are scattered areas of fibroglandular density. FOLLOW UP: 1YR The false-negative rate of mammography is approximately 10-percent. Management of a palpable abnormality must be based on clinical grounds. Patient was entered into a reminder system with a target due date for the next mammogram. Impression dictated by: Michael Bateman Jr., D.ODrew 06/09/2025 10:10 AM Dictation Location: [facility] Dictated By: Michael Bateman Jr, DO 06/09/25 1009 Signed By: <Electronically signed by Mihcael Bateman Jr, DO in OV> 06/09/25 1010 Narrative 06/09/2025 10:13 AM EDT [facility] [address] [place] [address] Mammography Report Signed Patient: Sherrell Mitchell MR#: [id number] 92 : 1945 Acct:[id number] Age/Sex: 80 / F Adm Date: 06/09/25 Loc: [place] Room: Type: [facility] Attending Dr: Ok Gaytan DO Ordering Provider: Ok Gaytan DO Date of Service: 06/09/25 Procedure(s): MM diagnostic mammo BI w/CAD Accession Number(s): ([id number]) MM/MM diagnostic mammo BI w/CAD: Yrly mamms Copies to: DO Ok Kirby DO CLINICAL DATA: History of right-sided breast cancer status post lumpectomy. Bilateral DIAGNOSTIC MAMMOGRAM - WITH TOMOSYNTHESIS AND CAD COMPARISON:Mammograms dating back to 2021 Tomosynthesis imaging was obtained using low-dose digital technique. This examination was reviewed with the aid of CAD. FINDINGS: The breasts are composed of scattered fibroglandular densities. No new areas of architectural distortion, worrisome masses or suspicious microcalcifications. MM/MM diagnostic mammo BI w/CAD Procedure Note Michael Bateman Jr., - 06/09/2025 [place] [address] Mammography Report Signed Patient: Sherrell Mitchell LMR#: [id number] 92 : 1945cct:[id number] Age/Sex: 80 / FAdm Date: 06/09/25 Loc: [place] Room:Type: [facility] Attending Dr: Ok Gaytan DO Ordering Provider: Ok Gaytan DO Date of Service: 06/09/25 Procedure(s): MM diagnostic mammo BI w/CAD Accession Number(s): ([id number]) MM/MM diagnostic mammo BI w/CAD: Yrlymamms Copies to: DO Ok Kirby DO CLINICAL DATA: History of right-sided breast cancer status postlumpectomy. Bilateral DIAGNOSTIC MAMMOGRAM - WITH TOMOSYNTHESIS AND CAD COMPARISON:Mammograms dating back to 2021 Tomosynthesis imaging was obtained using low-dose digital technique.This examination was reviewed with the aid of CAD. FINDINGS: The breasts are composed of scattered fibroglandular densities. No newareas of architectural distortion, worrisome masses or suspicious microcalcifications. MM/MM diagnostic mammo BI w/CAD IMPRESSION: NO MAMMOGRAPHIC EVIDENCE OF MALIGNANCY. ROUTINE FOLLOW-UP IS RECOMMENDED IN ONE YEAR. RESULT CODE: 1 Negative DENSITY CODE: 2 (approximately 25-50% glandular) There are scattered areasof fibroglandular density. FOLLOW UP: 1YR The false-negative rate of mammography is approximately 10-percent. Management of a palpable abnormality must be based on clinical grounds. Patient was entered into a reminder system with a target due date for thenext mammogram. Impression dictated by: Michael Bateman Jr., D.O. 06/09/2025 10:10 AM Dictation Location: S Dictated By: Michael Bateman Jr DO 06/09/25 1009 Signed By: <Electronically signed by Michael Bateman Jr, DO inOV> 06/09/25 1010 Ok Gaytan DO IMG BI PROCEDURES Final R esult from Last 3 Months Insurance [employer] MEDICARE COMPLETE Care Teams Relief Mate Relationship Specialty Start Date End Date Alejandro Stern DO [address] [place] [phone] PCP - General Family Medicine 07/14/25
[2025-08-04 12:22] VITALS: BP 169/73; PULSE 59; TEMP 36.8; O2SAT 98
[2025-08-04 12:47] VITALS: BP 180/74; PULSE 62
[2025-08-04 12:48] VITALS: BP 164/87; PULSE 64; O2SAT 97; O2SAT 98
[2025-08-04] MEDS: 0.9 % SODIUM CHLORIDE 10 ML SYRINGE - SALINE FLUSH INJ (12:49)
[2025-08-04] MEDS: BUPIVACAINE HCL 0.25% PF 25 MG/10 ML VIAL 2 ML INJ (12:49)
[2025-08-04] MEDS: LIDOCAINE HCL 2% 400 MG/20 ML MDV INJ (12:50)
[2025-08-04] MEDS: METHYLPREDNISOLONE ACETATE 80 MG/ML VIAL INJ (12:50)
[2025-08-04] MEDS: IOHEXOL 240 MG/ML - 10 ML VIAL INJ (12:50)
--- NOTE | 2025-08-04 12:54 | P.ON_ITS ---
Date of procedure: 08/04/25 Pre-op diagnosis: Pain due to lumbar stenosis with neurogenic claudication Post-op diagnosis: same as pre-op Procedure: Procedure: Right L4-5, L5-S1 transforaminal epidural steroid injection Medications: Bupivacaine 0.25% 2cc, lidocaine 2% 1cc, depomedrol 80mg The patient was seen and examined in the preoperative holding area.? Informed consent was obtained and placed on the chart.? Patient was brought to the medical procedure unit and placed in the prone position where a timeout was completed verifying the correct patient, procedure site, position, and planned special equipment using sterile aseptic technique.? Under direct fluoroscopic visualization a 25-gauge Quincke tipped spinal needle was advanced to the designated neural foramen where contrast dye was injected to show adequate spread.? The needle was inserted at level right L4-5. There was no evidence of vascular or adverse uptake.? Epidural spread was appreciated.? The above- mentioned injectate was then placed in a 1.5 mL aliquot preceded by negative aspiration.? The needle was removed. The needle was inserted and the procedure repeated at level right L5-S1.? The surgery site was covered.? Patient was taken to the postprocedural recovery area and monitored for an appropriate length of time before found suitable for discharge in the accompaniment of a responsible adult. Anesthesia: Local Surgeon: Margarita Sol Pathology: none sent Condition: stable Disposition: no change
== END 2025-08-04 12:57 | disposition home or self-care (01) ==
PROVIDERS: PCP Family Medicine; Visit Provider Anesthesiology
DX: M48.062 Spinal stenosis, lumbar region with neurogenic claudication (principal); M54.50 Low back pain, unspecified
CPT/HCPCS: 64483; 64484; J0665; J1010; Q9966

== ENCOUNTER 2025-08-21 09:49 | Outpatient (OUT) | payer MEDICARE, SELFPAY ==
--- OUTSIDE RECORDS SUMMARY | 2025-08-21 09:52 | XMS_ITS | Clinical Summary ---
Author Organization [facility] Address [address] [place] [address] Care Team Providers Care Seo Specialist Name Role Phone Warnervalente Alejandro Jaylan LUX Primary Care Provider [phone] Allergies No known active allergies Medications MedicationSigDispense QuantityRefillsLast FilledStart DateEnd DateStatus methIMAzole (Tapazole) 10 MG tablet 20 mg 1 (one) time each day at the same timeActive oxybutynin (Ditropan) 5 MG tablet 03/07/2023ctive tamoxifen (Nolvadex) 20 MG chemo tablet 05/25/2023ctive esomeprazole (NexIUM) [address] capsule 1 capsule 1 (one) time each day at the same timeActive Calcium Carb-Cholecalciferol 600-10 MG-MCG tablet 06/28/2022ctive levothyroxine (Synthroid, Levoxyl) 50 MCG tablet 12/15/2023ctive levothyroxine (Synthroid, Levoxyl) 100 MCG tablet 06/21/2024ctive furosemide (Lasix) 20 MG tablet 12/19/2024tive solifenacin (VESIcare) 5 MG tablet Take 5 mg by mouth DailyActive Active Problems ProblemNoted DateDiagnosed DateCalculus of gallbladder without cholecystitis without xcywqaniwki22/14/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 05/29/2023 Encounters DateTypeDepartmentCare AnzcQyvqugraiwe36/29/2025 3:45 PM EDTOffice Visit [facility] [address] [facility] [address] [place] [id number] Ok Gaytan DO Ductal carcinoma in situ (DCIS) of right breast (Primary Dx)07/14/2025Travel 06/25/2025Travelfrom Last 3 Months Family History Medical HistoryRelationNameCommentsUterine cancerMotherBreast cancerNeg HxColon cancerNeg HxOvarian cancerNeg HxPancreatic cancerNeg HxRelationNameStatus CommentsFatherDeceasedMotherDeceased Social History Tobacco UseTypesPacks/DayYears UsedDateSmoking Tobacco: NeverSmokeless Tobacco: Never Tobacco Cessation:Counseling Given: Not Answered Alcohol UseStandard Drinks/WeekCommentsNot Currently0 (1 standard drink = 0.6 oz pure alcohol)CommentsUnknownSex and Gender InformationValueDate Recorded Sex Assigned at BirthNot on fileLegal KmqHqlvpc32/15/2023 6:52 PM EDTGender IdentityNot on fileSexual OrientationNot on file Last Filed Vital Signs Vital SignReadingTime TakenCommentsBlood Uskbqtbc975/85001/10/2025 10:23 AM EDT Pulse--Temperature--Respiratory Rate--Oxygen Saturation--Inhaled Oxygen Concentration--Gksycj104 kg (231 lb)01/10/2025 10:23 AM VLKFdzuvr827.2 cm (5' 7 )01/10/2025 10:23 AM EDTBody Mass Index36.18001/10/2025 10:23 AM EDT Plan of Treatment DateTypeDepartmentCare Team (Latest Contact Info)Nplovwnkrco38/19/2026 10:30 AM EDTOffice Visit [facility] [address] [phone] Ok Gaytan, [address] [facility] [address] [place] [address] Health MaintenanceDue DateLast DoneCommentsPneumococcal Vaccine: 65+ Years (1 of 1 - PCV)01/15/1996COVID-19 Vaccine ( - 2024- season)51, 08/15/2021, 12/21/2020, Additional history existsInfluenza Vaccine (#1) 51, 07/21/2023, 07/27/2022, Additional history exists Procedures Procedure NamePriorityDate/TimeAssociated DiagnosisCommentsBI MAMMOGRAM DIAGNOSTIC TOMOSYNTHESIS JIHCADXXFNvfvczn13/25/2025 10:09 AM EDT Ductal carcinoma in situ (DCIS) of right breast from Last 3 Months Results * Bilateral diagnostic mammogram with tomosynthesis (06/09/2025 10:09 AM EDT) Anatomical RegionLateralityModalityBreastBilateralMammographySpecimen (Source) Anatomical Location / LateralityCollection Method / VolumeCollection Time Received Time06/09/2025 10:09 AM EDT Impressions 06/09/2025 10:13 AM EDT NO MAMMOGRAPHIC EVIDENCE OF MALIGNANCY. ? ROUTINE FOLLOW-UP IS RECOMMENDED IN ONE YEAR. ? RESULT CODE: 1 ? Negative ? DENSITY CODE: 2 (approximately 25-50% glandular) There are scattered areas of fibroglandular density. ? FOLLOW UP: 1YR ? The false-negative rate of mammography is approximately 10-percent. ? Management of a palpable abnormality must be based on clinical grounds. ? Patient was entered into a reminder system with a target due date for the next mammogram. ? Impression dictated by: Michael Bateman Jr., D.ODrew ??06/09/2025 10:10 AM ? Dictation Location: [facility] ? Dictated By: ?Michael Bateman Jr, DO ? 06/09/25 1009 ? Signed By: <Electronically signed by Michael Bateman Jr, DO in OV> ?06/09/25 1010 Narrative 06/09/2025 10:13 AM EDT [facility] ?[address] ?[place] [address] ?? [phone] ? Mammography Report ? Signed ? Patient: Stephen,Sherrell L ?MR#: [id number] ?? 89 ? : 1945 ?Acct:[id number] ? Age/Sex: 80 / F ?Adm Date: 06/09/25 ? Loc: [place] ?Room: ?Type: REG CLI ?? Attending Dr: Ok Gaytan DO ? Ordering Provider: Ok Gaytan, DO ? Date of Service: 06/09/25 ? Procedure(s): MM diagnostic mammo BI w/CAD ?? Accession Number(s): ([id number]) MM/MM diagnostic mammo BI w/CAD: Yrly mamms ? Copies to: Alejandro Stern,DO ?? Ok Gaytan, DO ? CLINICAL DATA: ?History of right-sided breast cancer status post lumpectomy. ? Bilateral DIAGNOSTIC MAMMOGRAM - WITH TOMOSYNTHESIS AND CAD ? COMPARISON:Mammograms dating back to 2021 ? Tomosynthesis imaging was obtained using low-dose digital technique. ?? This examination was reviewed with the aid of CAD. ? FINDINGS: ? The breasts are composed of scattered fibroglandular densities. No new areas of architectural distortion, worrisome masses or suspicious microcalcifications. ? MM/MM diagnostic mammo BI w/CAD ?? Procedure Note Michael Bateman Jr., - 06/09/2025 [facility] [place] [address] Mammography Report Signed Patient: Sherrell Mitchell LMR#: [id number] 92 : 6Acct:[id number] Age/Sex: 80 / FAdm Date: 06/09/25 Loc: [place] Room:Type: [facility] Attending Dr: Ok Gaytan DO Ordering Provider: Ok Gaytan DO Date of Service: 06/09/25 Procedure(s): MM diagnostic mammo BI w/CAD Accession Number(s): ([id number]) MM/MM diagnostic mammo BI w/CAD: Yrlymamms Copies to: Alejandro Stern,DO Ok Gaytan DO CLINICAL DATA: History of right-sided breast [...] mammogram. Impression dictated by: Michael Bateman Jr., Lorena.ODrew 06/09/2025 10:10 AM Dictation Location: [facility] Dictated By: Michael Bateman Jr, DO 06/09/25 1009 Signed By: <Electronically signed by Michael Bateman Jr, DO inOV> 06/09/25 1010 Authorizing ProviderResult TypeResult StatusFredric H Itzkowiluz maria DOIMG BI PROCEDURESFinal Result from Last 3 Months Insurance Care Teams Team MemberRelationshipSpecialtyStart DateEnd Date Alejandro Stern DO [address] [place] [phone] PCP - GeneralFamily Medicine9/29/25
--- OUTSIDE RECORDS SUMMARY | 2025-08-21 09:52 | XMS_ITS | Clinical Summary ---
Author Organization [facility] Address [address] [place] [address] Care Team Providers Care Casting Agent Name Role Phone Alejandro Stern Primary Care Provider [phone] Allergies No known active allergies Medications MedicationSigDispense QuantityRefillsLast FilledStart DateEnd DateStatus levothyroxine (SYNTHROID) 75 mcg tablet 04/28/2022ctive esomeprazole (NEXIUM) 40 mg capsule 1 capsule.12/03/2021ctive methIMAzole (TAPAZOLE) 10 mg tablet 04/28/2022ctive calcium carbonate 600 mg-cholecalciferol 400 units 600 mg-10 mcg (400 unit) tab Calcium Carbonate-Vitamin D3 (Calcium 600 + D(3)) 600 mg-10 mcg (400 unit) Tablet Active 2 TAB PO Daily at bedtime June 28, 2022 12:06/28/2022 Active betamethasone valerate 0.1 % cream 1 application q 24 HR.08/30/2021ctive polyethylene glycol 3350 (MIRALAX, GLYCOLAX) 17 gram/dose powder Polyethylene Glycol 3350 (Miralax) 17 gram/dose Powder Active 4 GM PO Daily at bedtime June 28, 2022 12:0006/28/2022ctive VITAMIN B COMPLEX ORAL Vitamin B Complex Active 1 CAP PO Daily June 28, 2022 12:06/28/2022 Active Active Problems No known active problems Family History Medical HistoryRelationCommentsSkin CancerFatherUterine CancerMotherbladder cancerMotherRelationStatusCommentsFatherDeceasedMotherDeceased Social History Tobacco UseTypesPacks/DayYears UsedDateSmoking Tobacco: NeverSmokeless Tobacco: Never Tobacco Cessation:Counseling Given: Not Answered Alcohol UseStandard Drinks/WeekCommentsNot Currently0 (1 standard drink = 0.6 oz pure alcohol)Area Deprivation IndexAnswerDate RecordedNational Score (1-100), lower number is lower bysr971110/29/2022State Score (1-10), lower number is lower riskNot on file3Data from: https://www.neighborhoodatlas.medicine.[facility].edu/. Last address used for maxkmzvkzzm[address]3CommentsNoSex and Gender InformationValueDate RecordedSex Assigned at BirthNot on fileLegal SexFemale 07/19/2022 2:45 PM EDTGender IdentityNot on fileSexual OrientationNot on file Last Filed Vital Signs Vital SignReadingTime TakenCommentsBlood Hquupffs314/7607/26/2022 9:08 AM EDT Mtcpa063307/26/2022 9:08 AM GQRFnftqegrctm12.1 ??C (96.9 ??F)07/26/2022 9:08 AM EDTRespiratory Oekd4145 9:08 AM EDTOxygen Pkskhvyfer93%07/26/2022 9:08 AM EDTInhaled Oxygen Concentration--Ikfdrf292.1 kg (225 lb)07/26/2022 9:08 AM ULPSmogqk371.1 cm (5' 5 )07/26/2022 9:08 AM EDTBody Mass Index37.441 9:08 AM EDT Plan of Treatment Health MaintenanceDue DateLast DoneCommentsAnxiety Wmglbsmdw22/01/1964Depression Eadtziffl56/01/1964DTaP,Tdap,Td Vaccine (1 - Tdap)1965Diabetes Screening 1991Pneumococcal Vaccine: 50+ (1 of 1 - PCV)01/15/1996Shingrix Vaccine (1 of 2)01/15/1996Bone Density Uwhusoypp20/01/2011RSV Vaccine (1 - 1-dose 75+ series)1Advance Directive Jaxkeqzuhc57/01/2025Medicare Advantage Annual Wellness Visit5Covid-19 Vaccine (2024- season)2025 08/15/2021, 12/21/2020, 11/23/2020Influenza Vaccine (#1)51, 07/20/2020 Insurance Care Teams Team MemberRelationshipSpecialtyStart DateEnd Date Alejandro Stern, [address] [place] [address] PCP - GeneralFamily Hvxhnlkz95/11/22
--- OUTSIDE RECORDS SUMMARY | 2025-08-21 09:52 | XMS_ITS | Clinical Summary ---
Author Organization [facility] Address [address] [place] [address] Phone Care Team Providers Care Treater Name Role Phone Unavailable Primary Care Provider Unavailabl e Social History Tobacco UseTypesPacks/DayYears UsedDateSmoking Tobacco: Never Assessed CommentsUnknownSex and Gender InformationValueDate RecordedSex Assigned at Not on fileLegal KvyHixxik15/12/2024 8:54 AM ESTGender IdentityNot on fileSexual OrientationNot on file Plan of Treatment Health MaintenanceDue DateLast DoneCommentsLipid Panel1946Medicare Annual Wellness Visit (AWV)1946Hepatitis C Zwzjpider62/01/1964DTaP/Tdap/Td Vaccines (1 - Tdap)01/15/1968Pneumococcal Vaccine (1 of 1 - PCV)01/15/1996Zoster Vaccines (1 of 2)01/15/1996Bone Density Scan2011RSV High Risk: (Elderly (60+) or Population) (1 - 1-dose 75+ series)2021Influenza Vaccine (#1)2025OVID-19 Vaccine (1 - 2024- season)2025HIB VaccinesAged OutNo longer eligible based on patient's age to complete this topicHPV Vaccines Aged OutNo longer eligible based on patient's age to complete this topic Hepatitis A VaccinesAged OutNo longer eligible based on patient's age to complete this topicHepatitis B VaccinesAged OutNo longer eligible based on patient's age to complete this topicIPV VaccinesAged OutNo longer eligible based on patient's age to complete this topicMeningococcal VaccineAged OutNo longer eligible based on patient's age to complete this topicRotavirus VaccinesAged Out No longer eligible based on patient's age to complete this topic Insurance MemberSubscriberPlan / Payer (Effective 2022-Present)Name:Sherrell Mitchell Relation to Subscriber:SelfName:Sherrell Mitchell Payer ID:Not on file Type:Not on file Address: [place] [id number]
--- NOTE | 2025-08-21 10:41 | PM.CN ---
Consult Note: HPI Data of Consult Patient: known to practice within the last 3 years Requesting Physician: Sheron Sena NP Primary Care Provider: Alejandro Stern DO Consult Narrative Reason for consult: low back pain Narrative: Sherrell Mitchell a pleasant 80 year old female with chronic low back pain secondary to lumbar spondylolisthesis, lumbar spondylosis, and lumbar stenosis presents for evaluation as advised by ELENI Henderson. Patient has undergone recent lumbar xray and MRI imaging which confirms lumbar spondylolisthesis, lumbar spondylosis, and lumbar stenosis L3-S1. patient denies recent fall/injury, notes pain did start 5 years ago after a fall. Pain today 8/10 increasing to 10/10 with standing and walking. pain improves significant with sitting and lying. reports weakness of RLE with standing and walking, as well as pain in right thigh. could not tolerate PT due to severe pain, reports she attempted PT and HEP for at least 6 weeks without improvement. Pt recently underwent right l4-5 l5-s1 TFESI with mild relief, she still notes severe pain with standing and walking longer than 3 minutes that improves immediately with sitting or forward flexion. cc:: CC: Sheron Sena NP Review of Systems ROS Musculoskeletal Reports: back pain PFSH PFSH Medical History (Updated 07/17/25 @ 19:06 by ALEX STEEN II) Osteoarthritis ?M19.90 - Unspecified osteoarthritis, unspecified site (ICD-10) Breast cancer ?C50.919 - Malignant neoplasm of unspecified site of unspecified female breast (ICD-10) Graves disease ?E05.00 - Thyrotoxicosis with diffuse goiter without thyrotoxic crisis or storm (ICD-10) Heart murmur ?R01.1 - Cardiac murmur, unspecified (ICD-10) Surgical History (Updated 06/04/25 @ 09:52 by Rhona Rangel RN) History of breast surgery ?Z98.890 - Other specified postprocedural states (ICD-10) H/O section ?Z98.891 - History of uterine scar from previous surgery (ICD-10) Meds Home Medications and Allergies Home Medications ?Medication ?Instructions ?Recorded ?Confirmed ?Type calcium 600 mg (as 1 tab PO DAILY 06/04/25 08/04/25 History carbonate)-vitamin D3 5 mcg (200 unit) tablet (Calcium 600 + D(3)) esomeprazole magnesium 40 mg 40 mg PO DAILY 06/04/25 08/04/25 History capsule,delayed release (Nexium) furosemide 20 mg tablet 20 mg PO DAILY 06/04/25 08/04/25 History levothyroxine 100 mcg capsule 100 mcg PO DAILY 06/04/25 08/04/25 History methimazole 10 mg tablet 10 mg PO BID 06/04/25 08/04/25 History polyethylene glycol 3350 17 17 g PO DAILY 06/04/25 08/04/25 History gram/dose oral powder (Miralax) solifenacin 5 mg tablet 5 mg PO DAILY 06/04/25 08/04/25 History tamoxifen 20 mg tablet 20 mg PO DAILY 06/04/25 08/04/25 History vitamin B complex (Vitamins B 1 cap PO DAILY 06/04/25 08/04/25 History Complex capsule) potassium chloride 10 mEq meq PO 07/17/25 History tablet,extended release Allergies Allergy/AdvReac Type Severity Reaction Status Date / Time No Known Drug Allergies Allergy Verified 08/04/25 12:23 Exam Constitutional Documenting provider has reviewed patient's vital signs: yes Common normals: no apparent distress, oriented x3, healthy appearing, alert and well nourished General appearance: cooperative HENMT Common normals: normocephalic, hearing grossly normal bilaterally and moist oral mucous membranes Head and scalp: normocephalic Eye Common normals: PERRL Pupil: PERRL Neck & C-Spine Common normals: full ROM General: normal visual inspection Chest Common normals: inspection of chest normal Respiratory Common normals: normal respiratory effort, no retractions and no use of accessory muscles Back & Pelvis Lumbar spine/lower back: ROM limited, pain with ROM, lumbar spinal tenderness and straight leg raise negative bilaterally Other: increased pain with standing and walking, significant improvement with sitting positive facet loading bilaterally pain following right L4,5,S1 with standing, walking strength 5/5 in BLE Neuro Common normals: oriented x3 Sensorium/orientation: alert Psych Common normals: mental status grossly normal, thought process normal, cooperative, affect normal, speech normal and activity/motor behavior normal Speech: normal speech Thought process: normal thought process Results Additional Findings Additional findings: If on a controlled substance or opioids, I have checked an [place] report on this patient and there are no aberrancies noted in the prescribing history.??If on a controlled substance or opioid a drug screen was completed and reviewed within the last year, and if there has not been a drug screen completed we ordered one today to monitor higher risk, state monitored pain medication use. As part of providing excellent, safe, comprehensive care, the following was completed at our patient's visit: 1. A medication reconciliation and review to ensure accurate knowledge of current/active medications, including asking our patients to inform us about any uuwi-zag-mtkjaff medications or herbal remedies/nutritional supplements/alternative remedies. 2. A review to specifically ensure our patients have had annual screening for screening for depression, screening for tobacco use, and screening for unhealthy alcohol use. For concerning screenings had a discussion with the patient, provided patient education, and recommended follow-up with primary care provider when appropriate. If patient noted with a risk of falling, they received education on strength, gait, and balance training to prevent future risk of falling. Portions of this note may have been carried over from the previous visit and updated as appropriate. Please note this office utilizes paper charting in addition to the electronic medical record. A list of current medications, vitals, and PMH is available there as the clinical staff outside of myself do not have access to [employer] charting during the clinic day operations. As part of providing quality comprehensive care the current medications, vitals, and PMH were reviewed in the paper chart. Assessment and Plan Assessment and Plan (1) Lumbar stenosis without neurogenic claudication: (2) Lumbar spondylosis: Assessment and Plan: The patient has had over 3 months of moderate to severe low back pain with functional impairment and inadequate response to conservative care including NSAIDS (unless there are contraindication such as concurrent blood thinners), multiple oral or topical pain medications, and home exercise program/physical therapy.?Patient has completed >6 weeks of guided home exercise program and/or formal physical therapy program without relief of their symptoms.? ? 07/21/25 bilateral L4-5 facet medial branch block 50% improvement preop pain 05/25 post op pain 01/23 Plan f/u with NS as planned, consider scs trial start gabapentin 100mg TID as tolerated, risks vs benefits reviewed nurse call in 1 month to evaluate response to gabapentin
== END 2025-08-21 09:50 | disposition home or self-care (01) ==
LOC: PM 09:49
PROVIDERS: PCP Family Medicine; Visit Provider Nurse Practitioner
DX: M48.062 Spinal stenosis, lumbar region with neurogenic claudication (principal); M47.816 Spondylosis without myelopathy or radiculopathy, lumbar region
CPT/HCPCS: G0463